=== PATIENT | male | born 1965 | race African-American/Black ===

== ENCOUNTER → 2016-05-09 11:09 | Outpatient (CLI) | payer BC ==
[2014-07-06 10:42] VITALS: BMI 26.3
[~2016-05-09 11:09] MED LIST: COLACE100 MG PO; STRESS 600 WI1 UDTAB PO; TESTOSTERON200 MG/ML IM
== END | disposition home or self-care (01) ==
LOC: D.CT 11:09
DX: R91.8 Other nonspecific abnormal finding of lung field (principal)

== ENCOUNTER → 2017-05-06 08:05 | Outpatient (CLI) | payer BC ==
[2014-07-06 10:42] VITALS: BMI 26.3
== END | disposition home or self-care (01) ==
LOC: D.CT 08:05
DX: R91.8 Other nonspecific abnormal finding of lung field (principal)

== ENCOUNTER 2017-10-14 16:50 | Observation (INO) | payer BC ==
[~2017-10-14] VITALS: Ht 190.5 cm; Wt 101.8 kg
--- NOTE | ~2017-10-14 | EC ---
PATIENT:NAEL MEYERS DATE OF SERVICE: 10/14/17 SEX: M MEDICAL RECORD: [id number] DATE OF : 63 LOCATION:D.M2 D.212 AGE OF PATIENT: 52 ADMISSION DATE: 10/14/17 REFERRING PHYSICIAN: INTERPRETING PHYSICIAN: SU HWANG MD ECHOCARDIOGRAM REPORT ECHO CHARGES 4 ECHO COMPLETE Date: 10/15 CLINICAL DIAGNOSIS: HTN ECHOCARDIOGRAPHIC MEASUREMENTS (adult normal given) AC root (d.<3.7cm) 3.8 cm LV Septum d (<1.2 cm> 1.3 cm Valve Excursion 2.1 cm LV Septum (systole) 1.4 cm Left Atria (s.<4.0cm> 3.6 cm LVPW d(<1.2cm) 1.6 cm RV (d.<2.3cm) 4.0 cm LVPW (sytole) 1.8 cm LV diastole(<5.6CM) 4.9 cm MV E-F(>70mm/sec) cm LV systole 3.6 cm LVOT Diameter 2.1 cm MV exc.(>10mm) 2.1 cm Est.ejection fraction (50-75%) % DOPPLER: LVIT cm/sec A 68.0 cm/sec E 77.0 cm/sec LA cm/sec RVSP 20 mmHg LVOT 106 cm/sec AOP1/2T m/s Asc. Ao 128 cm/sec RVOT 76 cm/sec RA cm/sec PA 136 cm/sec AV Gradient Peak 6.59 mmHg AV Mean 3.98 mmHg AV Area 3.0 cm MV Gradient Peak 3.11 mmHg MV Mean 1.23 mmHg MV Area cm COMMENTS: Monotype Keyboard Operator: Dannie GARZA Water Plant Pump Operator: 1 Dr. Hwang TAPE# PACS Pericardial Effusion N DATE OF SERVICE: 10/15/2017 ECHOCARDIOGRAM FINDINGS: 1. Left ventricular chamber size is within normal limits. Left ventricular systolic function is normal. Overall ejection fraction estimated at 55% to 60%. 2. Left atrium is within normal limits at 3.6 cm. Right atrium and right ventricle chamber sizes are mildly dilated. 3. Valvular structures have normal structure and motion. ECHOCARDIOGRAM REPORT [id number] NAEL MEYERS 4. Doppler interrogation only reveals trace to mild tricuspid regurgitation, no other valvular insufficiency or stenosis and pulmonary systolic pressure is estimated at 20 mmHg. 5. No evidence of pericardial effusion or left ventricular thrombus. TRANSINT:[id number] Voice Confirmation ID: [id number] DOCUMENT ID: [id number] SU HWANG MD at 1843 CC: [id number] DICTATION DATE: 10/15/17 1642 PARALEGAL INSTRUCTOR: 10/15/171928 DIS IN 10/15/17 [place] [id number] [place] [id number]
--- NOTE | ~2017-10-14 | DS ---
PATIENT:NAEL HICKS :63 MEDICAL RECORD: [id number] DISCHARGE SUMMARY ADMISSION DATE: 10/14/17 DISCHARGE DATE: 10/15/17 DATE OF DISCHARGE: 10/15/2017 DIAGNOSES: 1. Hypertension. 2. Chest pain. 3. Shortness of breath, dyspnea on exertion. 4. History of left ventricular hypertrophy, diastolic heart dysfunction. HOSPITAL COURSE: Mr. Hicks presents with chest pain, it is very atypical chest pain from a cardiac standpoint, sharp pain that lasts only approximately a minute, stabbing, fleeting pain. Troponins were normal. EKG was normal. He has a history of left ventricular hypertrophy and diastolic dysfunction, but he has no heart failure symptomatology. His blood pressure is well controlled on his current medications at this time. We got an echocardiogram to evaluate the left ventricular hypertrophy. No other cardiac workup or treatment is necessary. TRANSINT:[id number] Voice Confirmation ID: [id number] DOCUMENT ID: [id number] SU SPENCE MD at 1843 CC: [id number] DICTATION DATE: 10/15/17 09 PETROLEUM SUPPLY SPECIALIST: 10/15/17 0912 DIS IN 10/15/17 [facility] [address] [place] [address]
[2017-10-14] MEDS ORDERED: HYDROCHLOROTH12.5 M1 PO (16:56)
[2017-10-14] MEDS ORDERED: ZESTRIL10 MG PO (16:57)
[2017-10-14] MEDS ORDERED: LIPITOR10 MG PO (16:57)
[2017-10-14 17:00] VITALS: BP 118/76
[2017-10-14 17:19] LABS: BASOPHILS 0.5 % (0-2); EOSINOPHILS 3.3 % (0-7); HEMOGLOBIN 14.5 g/dL (13.5-17.5); IMMATURE GRANULOCYTES 0.2 % (0-5); LYMPHOCYTES 36.8 % (15-50); MCH 30.8 pg (26.0-34.0); MCHC 35.4 g/dL (31.0-37.0); MEAN PLATELET VOLUME 11.3 fL (7.4-10.4); NEUTROPHILS 48.2 % (40-80); PLATELET COUNT 138 10x3/uL (130-400); RBC 4.71 10x6/uL (4.20-6.10); RDW 13.1 % (11.5-14.5); WBC 5.8 10x3/uL (4.8-10.8)
[2017-10-14 17:47] LABS: APTT 25.3 SECONDS (22.8-39.4); INR 1.05 (0.85-1.17); PROTIME 13.3 SECONDS (11.6-15.0)
[2017-10-14 18:00] VITALS: BP 110/72
[2017-10-14 18:01] LABS: ALBUMIN 3.6 g/dL (3.4-5.0); ALKALINE PHOSPHATASE 65 U/L (46-116); ALT (SGPT) 42 U/L (10-68); BILIRUBIN - TOTAL 0.26 mg/dL (0.2-1.3); CALC OSMOLALITY 277 mosm/kg (275-300); CALCIUM 8.1 mg/dL (8.5-10.1); CARBON DIOXIDE 26.4 mmol/L (21.0-32.0); CHLORIDE - SERUM 106 mmol/L (98-107); CREATININE - SERUM 2.2 mg/dL (0.6-1.3); GLUCOSE 88 mg/dL (74-106); POTASSIUM - SERUM 4.1 mmol/L (3.5-5.1); PROTEIN - SERUM 7.1 g/dL (6.4-8.2); SODIUM 138 mmol/L (136-145); UREA NITROGEN 20 mg/dL (7-18); eGFR NON AFRICAN AMERICAN 33 mL/min (90-120)
[2017-10-14 18:18] LABS: CKMB 1.7 U/L (0.0-3.6); CREATINE KINASE 745 UL (21-232)
[2017-10-14 18:26] LABS: TROPONIN-I < 0.017 ng/mL (0.000-0.060)
[2017-10-14 19:00] VITALS: BP 119/76
[2017-10-14] MEDS ORDERED: ROBAXIN-750750 MG (20:23)
[2017-10-14] MEDS ORDERED: TAZTIA XT360 MG PO (20:23)
[2017-10-14 21:17] VITALS: BP 116/80
[2017-10-15 02:54] LABS: APPEARANCE CLEAR (CLEAR); BILIRUBIN NEGATIVE (NEGATIVE); COLOR YELLOW (YELLOW); GLUCOSE NEGATIVE (NEGATIVE); KETONE NEGATIVE (NEGATIVE); NITRITE NEGATIVE (NEGATIVE); PROTEIN NEGATIVE (NEGATIVE); SPECIFIC GRAVITY 1.015 (1.005-1.020); UROBILINOGEN NORMAL (NORMAL)
[2017-10-15 03:06] LABS: CALC OSMOLALITY 281 mosm/kg (275-300); CALCIUM 7.5 mg/dL (8.5-10.1); CARBON DIOXIDE 28.4 mmol/L (21.0-32.0); CHLORIDE - SERUM 107 mmol/L (98-107); CREATININE - SERUM 1.8 mg/dL (0.6-1.3); GLUCOSE 90 mg/dL (74-106); POTASSIUM - SERUM 4.3 mmol/L (3.5-5.1); SODIUM 140 mmol/L (136-145); UREA NITROGEN 20 mg/dL (7-18); eGFR NON AFRICAN AMERICAN 42 mL/min (90-120)
[2017-10-15 03:07] LABS: TROPONIN-I < 0.017 ng/mL (0.000-0.060)
[2017-10-15 04:38] VITALS: Ht 190.5 cm; Wt 101.8 kg
[2017-10-15 06:35] VITALS: BP 118/72
[2017-10-15 07:49] VITALS: BP 119/73
[2017-10-15 11:28] VITALS: BP 135/74
== END 2017-10-15 14:42 | disposition home or self-care (01) ==
LOC: D.ER 16:50 → OBSVTIME 18:54 → D.EDHOLD 18:54 → D.M2 18:54
PROVIDERS: Family Medicine
DX: R07.89 Other chest pain (principal); I10 Essential (primary) hypertension; R00.1 Bradycardia, unspecified; I51.7 Cardiomegaly; F41.9 Anxiety disorder, unspecified

== ENCOUNTER 2018-06-07 07:23 | Day surgery (SDC) | payer BC ==
[~2018-06-07] VITALS: Ht 190.5 cm; Wt 103.2 kg
[~2018-06-07 07:23] MED LIST changes: +HYDROCHLOROTH12.5 M1 PO; +LIPITOR10 MG PO; +ROBAXIN-750750 MG; +TAZTIA XT360 MG PO; +ZESTRIL10 MG PO
[2018-06-07 07:40] LABS: HEMATOCRIT 44.5 % (42.0-54.0); HEMOGLOBIN 15.7 g/dL (13.5-17.5); MCH 31.2 pg (26.0-34.0); MCHC 35.3 g/dL (31.0-37.0); MCV 88.3 fL (80.0-100.0); MEAN PLATELET VOLUME 11.2 fL (7.4-10.4); RBC 5.04 10x6/uL (4.20-6.10); RDW 13.2 % (11.5-14.5)
[2018-06-07] MEDS ORDERED: NIACIN100 MG (08:12)
[2018-06-07 08:13] VITALS: BP 136/84; Ht 190.5 cm; Wt 103.2 kg
--- NOTE | 2018-06-07 10:25 | NUR ---
DC INTRUCTIONS GIVEN TO PT/FAMILY. STATE UNDERSTANDING. DC'D IV CATH FULLY INTACT. PT LEFT UNIT VIA WC AT 1025
--- NOTE | 2018-06-09 18:24 | OP ---
PATIENT NAME: NAEL MEYERS MEDICAL RECORD: [id number] :63 LOCATION:D.OPS ADMISSION DATE: SURGEON: IGNACIO ZUNIGA DO DATE OF OPERATION: 06/07/2018 PROCEDURE: Colonoscopy with polypectomy. INDICATIONS FOR PROCEDURE: Screening for colorectal cancer. SCOPE: Olympus video pediatric colonoscope. MEDICATIONS: Propofol 350 mg IV per anesthesia. WITHDRAWAL TIME: 15 minutes. ESTIMATED BLOOD LOSS: Minimal. COMPLICATIONS: None. FINDINGS: Informed consent was given. The patient was made comfortable with the above medication. After reaching an adequate level of sedation by slow IV push, the patient was placed on his left side. A digital rectal examination was performed and was normal. The endoscope was then advanced under direct visualization through the rectum to the cecum, confirmed by the presence of the appendiceal orifice and ileocecal valve. The endoscope was slowly withdrawn and mucosa was carefully examined. The prep quality was good. There were 2 polyps visualized on today's examination. The first was located in the transverse colon. It was a benign appearing, sessile polyp measuring approximately 5 mm in diameter. It was removed using hot forceps in 1 piece and completely retrieved. In the descending colon, there was another benign appearing sessile polyp, which measured approximately 3 mm in diameter. It was removed in 1 piece using hot forceps and completely retrieved. Retroflexion was performed in the rectum with a normal appearing rectal wall. The endoscope was withdrawn from the patient. The patient tolerated the procedure well and there were no complications. IMPRESSION: 1. Two polyps as described above, removed using hot forceps. 2. Otherwise, normal colonoscopy. PLAN AND RECOMMENDATIONS: 1. Discharge home when recovery parameters are met. 2. Follow up biopsy specimen results. 3. Continue current diet. 4. Continue current medications. 5. Recall colonoscopy in 5 years. TRANSINT:[id number] Voice Confirmation ID: [id number] DOCUMENT ID: [id number] OPERATIVE REPORT [id number] NAEL MEYERS IGNACIO ZUNIGA DO at 1824 CC: [id number] DICTATION DATE: 06/07/18 0945 TIMBER POISONER: 06/07/18 1059 [facility] 06/07/18 [place] [address]
== END 2018-06-07 10:25 | disposition home or self-care (01) ==
LOC: D.OPS 07:23
PROVIDERS: Anesthesiology; ATTEND Internal Medicine Gastroenterology
DX: Z12.11 Encounter for screening for malignant neoplasm of colon (principal); K63.5 Polyp of colon

== ENCOUNTER 2018-08-18 23:06 | Emergency (ER) | payer BC ==
[~2018-08-18] VITALS: Ht 190.5 cm; Wt 100.9 kg
[~2018-08-18 23:06] MED LIST changes: +NIACIN100 MG
[2018-08-18 23:14] VITALS: Ht 190.5 cm; Wt 100.9 kg
[2018-08-18 23:36] LABS: BASOPHILS 0.2 % (0-2); EOSINOPHILS 1.5 % (0-7); HEMATOCRIT 40.3 % (42.0-54.0); HEMOGLOBIN 14.2 g/dL (13.5-17.5); IMMATURE GRANULOCYTES 0.2 % (0-5); LYMPHOCYTES 36.9 % (15-50); MCH 30.9 pg (26.0-34.0); MCHC 35.2 g/dL (31.0-37.0); MCV 87.8 fL (80.0-100.0); MONOCYTES 9.8 % (2-11); NEUTROPHILS 51.4 % (40-80); PLATELET COUNT 150 10x3/uL (130-400); RBC 4.59 10x6/uL (4.20-6.10); RDW 13.4 % (11.5-14.5); WBC 6.5 10x3/uL (4.8-10.8)
[2018-08-18 23:52] LABS: APTT 25.4 SECONDS (22.8-39.4); INR 1.03 (0.85-1.17)
[2018-08-19 00:06] LABS: ALBUMIN 3.6 g/dL (3.4-5.0); ALKALINE PHOSPHATASE 95 U/L (46-116); ALT (SGPT) 47 U/L (10-68); BILIRUBIN - TOTAL 0.17 mg/dL (0.2-1.3); CALC OSMOLALITY 284 mosm/kg (275-300); CALCIUM 8.3 mg/dL (8.5-10.1); CARBON DIOXIDE 26.7 mmol/L (21.0-32.0); CHLORIDE - SERUM 105 mmol/L (98-107); GLUCOSE 113 mg/dL (74-106); POTASSIUM - SERUM 4.1 mmol/L (3.5-5.1); SODIUM 140 mmol/L (136-145); UREA NITROGEN 27 mg/dL (7-18); eGFR NON AFRICAN AMERICAN 37 mL/min (90-120)
[2018-08-19 00:24] LABS: CKMB 2.2 U/L (0.0-3.6)
[2018-08-19 00:25] LABS: CREATINE KINASE 999 UL (21-232); TROPONIN-I < 0.017 ng/mL (0.000-0.060)
[2018-08-19 02:06] VITALS: BP 128/63
== END 2018-08-19 02:50 | disposition home or self-care (01) ==
LOC: D.ER 23:06
PROVIDERS: Family Medicine
DX: R07.9 Chest pain, unspecified (principal); E86.0 Dehydration; R07.89 Other chest pain; I12.9 Hypertensive chronic kidney disease with stage 1 through stage 4 chronic kidney disease, or unspecified chronic kidney disease; N18.9 Chronic kidney disease, unspecified

== ENCOUNTER → 2020-04-25 10:40 | Outpatient (CLI) | payer BC ==
[2020-03-07 12:12] VITALS: BMI 26.8
[~2020-04-25 10:40] MED LIST changes: +ASCORBIC ACID500 MG PO; +DULERA 200 MCG8.8 GM INH; +KLONOPIN0.5 MG PO; +MELATONIN 3 MG1 TAB PO; +MUCINEX DM ER1 EAC1 PO; -NIACIN100 MG; +NIACIN100 MG PO; +NITROQUICK0.4 MG SL; +PEPCID AC20 MG PO; +PROAIR HFA8.5 G1 INH; +SINGULAIR10 MG PO; +SYMBICORT 16010.2 GM INH; +VENTOLIN HFA [SP8 GM INH; +VITAMIN B-1100 M1 PO; +VITAMIN D325 MC1 PO; +ZINC-220220 MG PO
--- NOTE | 2020-04-27 09:41 | EC ---
PATIENT:NAEL MEYERS DATE OF SERVICE: 04/25/20 SEX: M MEDICAL RECORD: [id number] DATE OF : 63 [facility] AGE [facility] PATIENT: 54 ADMISSION DATE: 04/25/20 REFERRING PHYSICIAN: INTERPRETING PHYSICIAN: DEVORA ESCAMILLA MD ECHOCARDIOGRAM REPORT ECHO CHARGES 4 ECHO COMPLETE Date: 04/25/20 CLINICAL DIAGNOSIS: CARDIOMYOPATHY ECHOCARDIOGRAPHIC MEASUREMENTS (adult normal given) AC root (d.<3.7cm) 3.2 cm LV Septum d (<1.2 cm> 0.7 cm Valve Excursion 2.2 cm LV Septum (systole) 1.0 cm Left Atria (s.<4.0cm> 3.3 cm LVPW d(<1.2cm) 0.9 cm RV (d.<2.3cm) 3.3 cm LVPW (sytole) 1.3 cm LV diastole(<5.6CM) 5.6 cm MV E-F(>70mm/sec) cm LV systole 4.1 cm LVOT Diameter 1.9 cm MV exc.(>10mm) 2.6 cm Est.ejection fraction (50-75%) % DOPPLER: LVIT cm/sec A 62 cm/sec E 59 cm/sec LA cm/sec RVSP 23 mmHg LVOT 113 cm/sec AOP1/2T m/s Asc. Ao cm/sec RVOT 66 cm/sec RA cm/sec PA 97 cm/sec AV Gradient Peak mmHg AV Mean mmHg AV Area cm MV Gradient Peak 1.9 mmHg MV Mean 1.1 mmHg MV Area cm COMMENTS: Women'S Garment Fitter: Kimmy [place] Manufacturing Engineering Technician: 3 Dr. Garcia TAPE# Pericardial Effusion N DATE OF SERVICE: Adequate 2D, color-flow imaging, spectral Doppler, and M-Mode FINDINGS: No LVH. LV internal dimensions are normal. LV is mildly globally hypo with LV function lower limits of normal to mildly reduced 45-50%. Aortic valve is tricuspid. No evidence of stenosis by Doppler interrogation. Left atrium is normal at 3.3 cm. Mitral valve shows no prolapse. Trace MR. Right side is grossly normal. Trace TR. ECHOCARDIOGRAM REPORT [id number] NAEL MEYERS TRANSINT:[id number] Voice Confirmation ID: [id number] DOCUMENT ID: [id number] DEVORA ESCAMILLA MD at 0941 CC: [id number] DICTATION DATE: 04/26/20 0827 BLUEPRINTER: 04/26/20 0954 [facility] CLI 04/25/20 [place] [id number] [place] [address]
== END | disposition home or self-care (01) ==
LOC: D.ECHO 10:40
PROVIDERS: ATTEND Clinical Nurse Specialist Family Health
DX: I42.2 Other hypertrophic cardiomyopathy (principal)

== ENCOUNTER → 2020-06-14 13:45 | Outpatient (CLI) | payer BC ==
[2020-03-07 12:12] VITALS: BMI 26.8
== END | disposition home or self-care (01) ==
LOC: D.RT 13:45
PROVIDERS: ATTEND Internal Medicine Pulmonary Disease
DX: J45.990 Exercise induced bronchospasm (principal)